=== PATIENT | female | born 1950 | race Caucasian/White ===

== ENCOUNTER 2020-01-11 11:13 | Emergency (ER) | payer MEDICARE, MEDICAID, SELFPAY ==
[2020-01-11] VITALS (8 sets, daily range): BP systolic 132–212; BP diastolic 81–101; PULSE 61–88; RESP 16–18; TEMP 36.9; O2SAT 98–100; BMI 32.3
--- NOTE | 2020-01-11 11:22 | DI.RAD.S_ITS ---
PROCEDURE: XR HIP W PEL IF DONE RT 2V INDICATIONS: Fall 2 weeks ago, persistent worsening pain. TECHNIQUE: AP pelvis with lateral view(s) of the right hip(s). COMPARISON: None. FINDINGS: Bones: No fractures or dislocations. Pelvic ring appears intact. No suspicious bony lesions. Chronic right os acetabulum. Mild bilateral hip degeneration. Lower lumbar spondylosis and sclerosis and spurring of the SI joints bilaterally. Soft tissues: The visualized bowel gas pattern is normal. No suspicious soft tissue calcifications. IMPRESSION: Mild bilateral hip joint degeneration. Lower lumbar spondylosis No fracture. Dictated by: Dakotah Smith M.D. on 01/11/2020 at 11:42 Approved by: Dakotah Smith M.D. on 01/11/2020 at 11:44
--- NOTE | 2020-01-11 13:37 | PC.NURSE ---
Pt c/o bilateral lower extremity pain/ burning and low back pain. 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 Now unable to walk r/t pain. Strength equall all 4 extremities, movement limited only by pain. Sensory intact. Denies bowel / bladder concerns. Very tearful and anxious, verbally reassured.
[2020-01-11 13:48] LABS: Add Manual Diff / Slide Review NO; Basophils Absolute Auto 100 /uL (0-100); Basophils Percent Auto 1.5 % (0-2); Eosinophils Absolute Auto 100 /uL (0-450); Eosinophils Percent Auto 0.7 % (2-4); Hematocrit 38.4 % (36-46); Hemoglobin 13.2 g/dL (12.0-16.0); Lymphocytes Absolute Auto 2000 /uL (1100-4500); Lymphocytes Percent Auto 25.1 % (25-40); Mean Corpuscular HGB Conc 34.2 % (30-36); Mean Corpuscular Hemoglobin 32.6 PG (26-34); Mean Corpuscular Volume 95.1 fL (80-100); Monocytes Absolute Auto 500 /uL (0-900); Monocytes Percent Auto 6.2 % (3-14); Neutrophils Absolute Auto 5400 /uL (1500-7000); Neutrophils Percent Auto 66.5 % (50-75); Platelet Count 286 X10^3/uL (150-400); Red Blood Cell Count 4.04 X10^6/uL (4.0-5.2); Red Cell Distribution Width 13.7 % (11.6-14.8); White Blood Cell Count 8.1 X10^3/uL (4.5-11.0)
[2020-01-11 14:00] LABS: Alanine Aminotransferase 14 IU/L (<35); Albumin 4.7 g/dL (3.5-5.0); Albumin Globulin Ratio 1.4 (1.0-2.8); Alkaline Phosphatase 69 U/L (38-126); Aspartate Aminotransferase 25 IU/L (14-36); BUN Creatinine Ratio 15.7 (6-22); Bilirubin Total 0.9 mg/dL (0.2-1.3); Blood Urea Nitrogen 11 mg/dL (7-17); C-Reactive Protein Quant 0.5 mg/dL (<1.0); Carbon Dioxide 23 mmol/L (22-32); Chloride 106 mmol/L (98-107); Creatine Kinase 53 U/L (30-135); Estimated Glomerular Filt Rate > 60.0 mL/min (>60); Globulin 3.3 g/dL (1.7-4.1); Glucose 102 mg/dL (80-110); HEMOLYSIS 42 (0-50); Sodium 139 mmol/L (137-145)
[2020-01-11] MEDS: ONDANSETRON 4 MG/2 ML INJ IV (14:07)
[2020-01-11] MEDS: KETOROLAC 60 MG/2 ML VIAL 30 MG IV (14:08)
[2020-01-11 14:14] LABS: Erythrocyte Sedimentation Rate 13 MM/HR (0-20)
[2020-01-11] MEDS: MORPHINE 4 MG/ML INJ IV (15:00)
--- NOTE | 2020-01-11 15:24 | DI.MRI.S_ITS ---
PROCEDURE: MR LUMBAR SPINE WO CON INDICATIONS: severe low back pain with sciatica unable to walk TECHNIQUE: Noncontrast sagittal T1 spin echo and T2 fast echo, sagittal STIR, axial T1 and T2 fast spin echo through the lumbar spine. In cases with scoliosis, additional coronal T2 fast spin echo may be performed. COMPARISON: [facility], CR, XR HIP W PEL IF DONE RT 2V, 01/11/2020, 11:20. FINDINGS: Image quality: Excellent. Alignment and Curvature: S-shaped scoliotic curvature is seen. There is minimal retrolisthesis at the L3-L4 level and the L4-L5 level and there is mild retrolisthesis at the L5-S1 level. There is overall straightening of the normal lumbar lordosis. Bone Marrow: Marrow is of normal overall signal. No acute vertebral body compression fractures. Spinal Cord: Conus medullaris terminates at the L1 level. Visualized cord demonstrates normal signal and size. Paraspinous Soft Tissues: No paravertebral masses. T12-L1: Normal appearance. L1-L2: Mild to moderate loss of disc height and disc signal can be seen. No significant neural foraminal or central canal narrowing can be seen. L2-L3: Moderate loss of disc height is seen. Loss of disc signal is seen. Moderate disc bulge is seen, which is eccentric to the left. Mild to moderate facet hypertrophy is seen. Reactive marrow endplate changes are seen, which are hyperintense on T1-weighted and T2-weighted imaging and most consistent with fatty metaplasia (Modic type II changes). There is mild to moderate right-sided and moderate left-sided neural foraminal narrowing seen. Mild central canal narrowing is seen. L3-L4: The disc height is well-preserved. Loss of disc signal is seen at this level. Moderate disc bulge is seen, which is eccentric to the left. Mild to moderate facet hypertrophy is seen. There is at least moderate bilateral neural foraminal narrowing seen, left worse than right. Moderate central canal narrowing is seen. L4-L5: Moderate loss of disc height is seen. Loss of disc signal is seen. Moderate to prominent disc bulge is seen. There is at least moderate facet hypertrophy seen. There is moderate left-sided neural foraminal narrowing seen. Moderate to severe right-sided neural foraminal narrowing is seen, with associated upon exiting right L4 nerve root. Moderate to severe central canal narrowing is seen. L5-S1: At least moderate loss of disc height and disc signal can be seen. Moderate to prominent disc bulge is seen at this level. At least moderate facet hypertrophy is seen. There is moderate to severe bilateral neural foraminal narrowing seen, right worse than left. Minimal to mild central canal narrowing is seen. 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 IMPRESSION: Multiple levels of lumbar spine degenerative change are seen, which are most prominent at the L4-L5 level and L5-S1. Dictated by: Eitan Mo M.D. on 01/11/2020 at 16:17 Approved by: Eitan Mo M.D. on 01/11/2020 at 16:22
--- NOTE | 2020-01-11 17:01 | ED.LOWEXIN ---
HPI - Extremity Injury (Lower) General Chief Complaint: Extremity Injury, Lower Stated Complaint: right leg is tingling,shortness of breath Time Seen by Provider: 01/11/20 12:59 Source: patient Mode of arrival: Ambulatory History of Present Illness HPI Narrative: CC: I can't walk HPI: The patient is a 69-year-old female who states that she slipped on wet pavement and landed on her buttocks 2 weeks ago. She complains that she has had significant low back pain and discomfort. She was not evaluated at the time at the time because it was not tender. She has had intermittent pain radiating from her right hip down her leg all the way to her toes. She has been having difficulty in walking and cannot walk. She states that the pain and discomfort is 10/10 in intensity. She has not been incontinent of urine or stool has not had urinary retention and has not lost sensation over her perineum or perirectally. She admits to a history of hypertension but denies diabetes mellitus and myocardial infarction. She has had no kidney failure. She does not smoke cigarettes but smokes marijuana. She has had intermittent sweats without fever or chills. She has had periodic headaches and a cough productive of clear sputum without hemoptysis. She has been short of breath but has had no palpitations or dizziness otherwise. She denies any nausea vomiting diarrhea abdominal pain. She has had some urinary frequency. Related Data Home Medications Medication Instructions Recorded Confirmed escitalopram oxalate 20 mg PO DAILY 01/11/20 01/11/20 levothyroxine 100 mcg PO DAILY 01/11/20 Previous Rx's Medication Instructions Recorded cyclobenzaprine 10 mg PO TID PRN #15 tab 01/11/20 naproxen 500 mg PO Q12H PRN #20 tab 01/11/20 prednisone 60 mg PO DAILY #15 tab 01/11/20 tramadol 50 mg PO Q6H PRN #20 tab 01/11/20 Allergies Allergy/AdvReac Type Severity Reaction Status Date / Time Penicillins [PENICILLINS] Allergy Unknown Verified 01/11/20 14:07 Review of Systems Review of Systems Narrative: Review of systems were all negative except for those mentioned in the history of present illness. Exam Narrative Exam Narrative: PHYSICAL EXAM: CONSTITUTIONAL: Awake, Alert, Oriented, Coherent, Cooperative in NAD. Sitting upright in bed. HEAD: AT/NC EENT: PERRL, FROM of eyes, no discharge, no nystagmus Oral mucosa is moist and pink, posterior pharynx is without erythema or exudate. NECK: Supple, no obvious JVD, Trachea is midline without stridor, no palpable LN or masses. SPINE: No gross deformity, no tenderness to palpation over the cervical and thoracic spine. However the patient has diffuse tenderness to palpation over the lumbar spine and right sciatic notch.. No CVA tenderness. THORAX: No deformity, retractions, chest wall tenderness, subcutaneous air or crepitice. LUNGS: Clear with symmetrical breath sounds without respiratory distress HEART: Normal heart tones, regular rhythm and rate without murmur. ABDOMEN: Soft, non-tender, normal bowel sounds without guarding, rebound, rigidity or palpable mass EXTREMITIES: No edema, cyanosis, deformity or tenderness. SKIN: No rash, bruising, petechiae or purpura. NEURO: Awake, alert, oriented, conversive, cranial nerves II-XII are symmetrical and normal, moves all 4 extremities and is ambulatory the patient has a positive straight leg raise on the right side. She had difficulty for initially flexing both hips and knees. Sensation was intact bilaterally. Initial Vital Signs Initial Vital Signs: Vital Signs Temperature 98.4 F 01/11/20 11:20 Pulse Rate 83 01/11/20 11:20 Respiratory Rate 18 01/11/20 11:20 Blood Pressure 212/99 H 01/11/20 11:20 Pulse Oximetry 100 01/11/20 11:20 Course Course Course Narrative: 1736 the patient initially states that she was unable to walking get up and around. An MRI was ordered. The MRI shows multiple levels of lumbar spine degenerative changes are seen which are most prominent at the L4-L5 and L5-S1 levels. At L4-5 there is moderate loss of disc height. Loss of disc signal is seen. Moderate to prominent disc bulge is seen. There is at least moderate facet hypertrophy. There is moderate left-sided neural foraminal narrowing seen. Moderate to severe right-sided neural foraminal narrowing is seen with associated upon exiting right L4 nerve root moderate to severe central canal narrowing is seen. L5-S1 at least moderate loss of disc height and disc signal can be seen moderate to prominent disc bulges seen at this level. At least moderate facet hypertrophy is seen. There is moderate to severe bilateral neuroforaminal narrowing seen in right worse than the left minimal to mild central canal narrowing is seen. The patient will be discharged home on a combination of Naprosyn cyclobenzaprine and tramadol for pain and discomfort. The patient was advised to follow-up with her primary care physician and be referred to a low back specialist. Orders Ordered: ED Orders 01/11/20 11:22 XR hip w pel if done RT 2V Stat 01/11/20 11:23 EKG-12 Lead Stat 01/11/20 13:35 C-Reactive Protein Quant Stat Complete Blood Count AUTO DIFF Stat Comprehensive Metabolic Panel Stat Creatine Kinase Stat Erythrocyte Sedimentation Rate Stat 01/11/20 15:24 MR lumbar spine wo con Stat 01/11/20 17:02 Consult to Physical Therapy Evaluate & Treat Discontinued Medications Ketorolac Tromethamine (Toradol) 30 mg IV NOW ONE Stop: 01/11/20 13:28 Last Admin: 01/11/20 14:08 Dose: 30 mg Documented by: NA Morphine Sulfate (Morphine) 4 mg IV NOW ONE Stop: 01/11/20 13:29 Last Admin: 01/11/20 15:00 Dose: 4 mg Documented by: NA Ondansetron HCl (Zofran) 4 mg IV NOW ONE Stop: 01/11/20 13:28 Last Admin: 01/11/20 14:07 Dose: 4 mg Documented by: NA Vital Signs Vital signs: Vital Signs - 8 hr 01/11/20 13:12 01/11/20 13:30 01/11/20 13:36 Pulse Rate 64 65 Pulse Rate [Bilateral Dorsalis Pedis] 88 Respiratory Rate 18 18 Blood Pressure Blood Pressure [Left Arm] 177/84 H 191/99 H Pulse Oximetry 100 98 01/11/20 14:00 01/11/20 14:30 01/11/20 15:00 Pulse Rate 65 71 61 Pulse Rate [Bilateral Dorsalis Pedis] Respiratory Rate 18 16 18 Blood Pressure Blood Pressure [Left Arm] 163/101 H 132/96 H 171/81 H Pulse Oximetry 98 98 98 01/11/20 18:00 Pulse Rate 68 Pulse Rate [Bilateral Dorsalis Pedis] Respiratory Rate 18 Blood Pressure 150/84 H Blood Pressure [Left Arm] Pulse Oximetry 99 MDM - Extremity Injury (Lower) Lab Data Result diagrams: 01/11/20 13:35 01/11/20 13:35 Labs: Lab Results 01/11/20 01/11/20 Range/Units 13:35 13:35 WBC 8.1 (4.5-11.0) X10^3/uL RBC 4.04 (4.0-5.2) X10^6/uL Hgb 13.2 (12.0-16.0) g/dL Hct 38.4 (36-46) % MCV 95.1 (80-100) fL MCH 32.6 (26-34) PG MCHC 34.2 (30-36) % RDW 13.7 (11.6-14.8) % Plt Count 286 (150-400) X10^3/uL Neut % (Auto) 66.5 (50-75) % Lymph % (Auto) 25.1 (25-40) % Schleicher % (Auto) 6.2 (3-14) % Eos % (Auto) 0.7 L (2-4) % Baso % (Auto) 1.5 (0-2) % Neut # (Auto) 5400 (7837-7995) /uL Lymph # (Auto) 2000 (6152-9671) /uL Schleicher # (Auto) 500 (0-900) /uL Eos # (Auto) 100 (0-450) /uL Baso # (Auto) 100 (0-100) /uL ESR 13 (0-20) MM/HR Sodium 139 (137-145) mmol/L Potassium 4.0 (3.4-5.1) mmol/L Chloride 106 (98-107) mmol/L Carbon Dioxide 23 (22-32) mmol/L BUN 11 (7-17) mg/dL Creatinine 0.70 (0.52-1.04) mg/dL Estimated GFR > 60.0 (>60) mL/min BUN/Creatinine Ratio 15.7 (6-22) Glucose 102 (80-110) mg/dL Calcium 10.0 (8.4-10.2) mg/dL Total Bilirubin 0.9 (0.2-1.3) mg/dL AST 25 (14-36) IU/L ALT 14 (<35) IU/L Alkaline Phosphatase 69 (38-126) U/L Total Creatine Kinase 53 (30-135) U/L C-Reactive Protein 0.5 (<1.0) mg/dL Total Protein 8.0 (6.3-8.2) g/dL Albumin 4.7 (3.5-5.0) g/dL Globulin 3.3 (1.7-4.1) g/dL Albumin/Globulin Ratio 1.4 (1.0-2.8) Discharge Plan Departure Patient Disposition: Home Clinical Impression: Low back pain radiating to right lower extremity Sciatica Qualifiers: Laterality: right Qualified Code(s): M54.31 - Sciatica, right side Discharge Date/Time: 01/11/20 18:00 Instructions: DI for Low Back Pain, DI for Sciatica Activity Restrictions/Additional Instructions: 1. Follow-up with your primary care physician to be referred to physical therapy for proper use and movement of your back. Also follow-up for referral to a neurosurgeon or orthopedic surgeon at deals with persistent chronic back pain and sciatica. 2. Take the prednisone 60 mg orally per day for the next 5 days. 3. Take Naprosyn 500 mg twice a day for pain and discomfort. 4. Take cyclobenzaprine 10 mg 3 times a day as needed for muscle spasms and cramps in your back. 5. Take tramadol 50 mg every 6 hours as needed as a rescue medicine for pain and discomfort unrelieved by the other medications. 6. If you develop troubles walking loss of sensation fever chills worsening pain or discomfort you need to return to the emergency department otherwise follow-up with your primary care physician. Prescriptions: New prednisone 20 mg tablet 60 mg PO DAILY Qty: 15 RF: 0 naproxen 500 mg tablet,delayed release (DR/EC) 500 mg PO Q12H PRN (Reason: pain) Qty: 20 RF: 0 cyclobenzaprine 10 mg tablet 10 mg PO TID PRN (Reason: muscle spasm) Qty: 15 RF: 0 tramadol 50 mg tablet 50 mg PO Q6H PRN (Reason: pain) Qty: 20 RF: 0 No Action levothyroxine 100 mcg tablet 100 mcg PO DAILY RF: 0 escitalopram oxalate 20 mg tablet 20 mg PO DAILY RF: 0 Referrals: Jeanette Mark MD [Primary Care Provider] -
== END 2020-01-11 18:00 | disposition home or self-care (01) ==
PROVIDERS: Emergency Provider Emergency Medicine; Family Provider Physician Assistant; PCP Family Medicine
DX: M54.5 Low back pain (principal); M54.31 Sciatica, right side; R06.02 Shortness of breath; R07.9 Chest pain, unspecified; M25.551 Pain in right hip
CPT/HCPCS: 36415; 72148; 73502; 80053; 82550; 85025; 85651; 86140; 93005; 96374; 96375; 99284; 99285; J1885; J2270; J2405

== ENCOUNTER 2021-01-23 19:10 | Emergency (ER) | payer MEDICARE, MEDICAID, SELFPAY ==
[2021-01-23] VITALS (11 sets, daily range): BP systolic 132–180; BP diastolic 68–96; PULSE 72–93; RESP 16–27; TEMP 36.7; O2SAT 94–99; BMI 30.7
--- NOTE | 2021-01-23 19:56 | DI.RAD.S_ITS ---
PROCEDURE: XR CHEST 1V INDICATIONS: overdose TECHNIQUE: One view of the chest was acquired. COMPARISON: None. FINDINGS: Surgical changes and devices: None. Lungs and pleura: Lungs are clear. No pleural effusions or pneumothorax. Mediastinum: Mediastinal contours appear normal. Heart size is normal. Large hiatal hernia. Bones and chest wall: No suspicious bony lesions. Overlying soft tissues appear unremarkable. IMPRESSION: Large hiatal hernia. No evidence acute pulmonary process. Dictated by: Stefano Nicole M.D. on 01/23/2021 at 20:41 Approved by: Stefano Nicole M.D. on 01/23/2021 at 20:41
[2021-01-23 20:23] LABS: Add Manual Diff / Slide Review NO; Basophils Absolute Auto 100 /uL (0-100); Basophils Percent Auto 0.8 % (0-2); Eosinophils Absolute Auto 100 /uL (0-450); Eosinophils Percent Auto 0.5 % (2-4); Hematocrit 38.6 % (36-46); Hemoglobin 12.6 g/dL (12.0-16.0); Lymphocytes Absolute Auto 1300 /uL (1100-4500); Lymphocytes Percent Auto 9.4 % (25-40); Mean Corpuscular HGB Conc 32.6 % (30-36); Mean Corpuscular Hemoglobin 31.4 PG (26-34); Mean Corpuscular Volume 96.1 fL (80-100); Monocytes Absolute Auto 900 /uL (0-900); Monocytes Percent Auto 6.4 % (3-14); Neutrophils Absolute Auto 11100 /uL (1500-7000); Neutrophils Percent Auto 82.9 % (50-75); Platelet Count 279 X10^3/uL (150-400); Red Blood Cell Count 4.01 X10^6/uL (4.0-5.2); Red Cell Distribution Width 14.5 % (11.6-14.8); White Blood Cell Count 13.4 X10^3/uL (4.5-11.0)
[2021-01-23 20:31] LABS: INR 0.9 (0.9-1.3); Prothrombin Time 10.9 SECONDS (10.1-12.7)
[2021-01-23 20:33] LABS: PTT Partial Thromboplastin Tim 27 SECONDS (26.4-36.2)
[2021-01-23 20:35] LABS: Alanine Aminotransferase 14 IU/L (<35); Albumin 4.5 g/dL (3.5-5.0); Albumin Globulin Ratio 1.7 (1.0-2.8); Alkaline Phosphatase 59 U/L (38-126); Aspartate Aminotransferase 24 IU/L (14-36); BUN Creatinine Ratio 16.7 (6-22); Bilirubin Total 0.4 mg/dL (0.2-1.3); Bilirubin Unconjugated 0.3 mg/dL (0.0-1.1); Blood Urea Nitrogen 14 mg/dL (7-17); Calcium 8.9 mg/dL (8.4-10.2); Carbon Dioxide 26 mmol/L (22-32); Chloride 105 mmol/L (98-107); Creatine Kinase 49 U/L (30-135); Estimated Glomerular Filt Rate > 60.0 mL/min (>60); Globulin 2.7 g/dL (1.7-4.1); Glucose 108 mg/dL (80-110); Potassium 4.8 mmol/L (3.4-5.1); Sodium 135 mmol/L (137-145); Total Protein 7.2 g/dL (6.3-8.2)
[2021-01-23 20:36] LABS: Acetaminophen < 10 ug/mL (10-30); Ethanol (ETOH) < 10 mg/dL; HEMOLYSIS 42 (0-50); Lactate (Lactic Acid) 1.8 mmol/L (0.7-2.1); Salicylate < 1.0 mg/dL (<20)
[2021-01-23 20:46] LABS: Troponin I < 0.012 ng/mL (0.01-0.034)
--- NOTE | 2021-01-23 21:23 | PC.NURSE ---
pt NS 1 liter bag iv has completed.
--- NOTE | 2021-01-23 21:25 | PC.NURSE ---
pt states she doesn't normally mix her oxycodone and marijuana. pt states she is feeling better and no longer nauseated.
[2021-01-23] MEDS: SODIUM CHLORIDE 0.9% 1,000 ML 150 ML IV (21:38)
[2021-01-23 22:02] LABS: UR Morphine/Opiate cutoff 300 Negative (Negative); Ur Creatinine 20 (Normal); Ur Specific Gravity 1.025 (Normal); Urine Amphetamines Negative (Negative); Urine Barbiturates Negative (Negative); Urine Benzodiazepines Negative (Negative); Urine Cocaine Negative (Negative); Urine MDMA Negative (Negative); Urine Methadone Negative (Negative); Urine Methamphetamines Negative (Negative); Urine Oxycodone Positive (Negative); Urine Phencyclidine Negative (Negative); Urine Tetrahydrocannabinol Positive (Negative); Urine Tricyclic Antidepressant Negative (Negative); Urine pH 5 (Normal)
[2021-01-23 23:12] LABS: Troponin I < 0.012 ng/mL (0.01-0.034)
--- NOTE | 2021-01-23 23:22 | ED.OVERDOSE ---
HPI - Overdose General Chief Complaint: Unresponsive Stated Complaint: Unresponsive Time Seen by Provider: 01/23/21 21:51 Source: patient and EMS Mode of arrival: EMS Limitations: no limitations History of Present Illness HPI Narrative: This is a 70-year-old female comes to the emergency department with complaint of overdose. Patient states that she took an oxycodone tonight. She states she took 1 tablet. She obtained this from another individual. She had 3-4 beers and smoked some marijuana. Patient states she was just trying to get out of pain. She has chronic back pain which he takes Tylenol for. She states she follows with primary care they do not prescribe anything else. She denies using other accidents as Neurontin, gabapentin or nortriptyline for pain. Patient states she was not intending to overdose. She was with her who noted she was not breathing well. He contacted 911. EMS states that when they arrived she had pinpoint pupils, she had 1 mg of Narcan intranasal and then additional mg IV and had immediate awakening. She did have emesis immediately afterwards. At this time she is feeling much better. Patient states that she does not intend to take the oxycodone again. She denies any other symptoms currently. Related Data Home Medications Medication Instructions Recorded Confirmed escitalopram oxalate 20 mg PO DAILY 01/11/20 01/11/20 levothyroxine 100 mcg PO DAILY 01/11/20 Previous Rx's Medication Instructions Recorded cyclobenzaprine 10 mg PO TID PRN #15 tab 01/11/20 naproxen 500 mg PO Q12H PRN #20 tab 01/11/20 prednisone 60 mg PO DAILY #15 tab 01/11/20 tramadol 50 mg PO Q6H PRN #20 tab 01/11/20 Allergies Allergy/AdvReac Type Severity Reaction Status Date / Time Penicillins [PENICILLINS] Allergy Unknown Verified 01/11/20 14:07 Review of Systems Review of Systems ROS Unobtainable: All systems reviewed & are unremarkable except as noted in HPI and below Patient History Substance Use Type: marijuana Exam Narrative Exam Narrative: GEN: well nourished, well appearing female, alert and oriented x 3, patient appears to be in mild distress. HEENT: Atraumatic, pupils are equal round reactive to light, extraocular movements are intact, nares are clear. HEART: Regular rate and rhythm without murmur, clicks, rubs. LUNGS:Lungs clear to auscultation, no wheezes, rales, crackles, chest moves symmetrically ABD:bowel sounds normal, soft, non-tender, no guarding, rebound, rigidity, no masses noted, no hepatosplenomegaly :No CVA tenderness MSCL: Non-tender, no muscle atrophy, muscles strength 5/5 upper and lower extremities, full range of motion, normal gait NEURO:CN 2-12 intact, sensation normal SKIN: No rash, erythema or other changes noted. Initial Vital Signs Initial Vital Signs: Vital Signs Temperature 98.0 F 01/23/21 19:17 Pulse Rate 93 H 01/23/21 19:17 Respiratory Rate 16 01/23/21 19:17 Blood Pressure 180/96 H 01/23/21 19:17 Pulse Oximetry 99 01/23/21 19:17 Scores GCS Kelsie coma scale eye opening: Spontaneous [place] coma scale verbal response: Orientated [place] coma scale motor response: Obey commands Kelsie coma scale total score: 15 Course Orders Ordered: ED Orders 01/23/21 19:56 XR chest 1V Stat 01/23/21 20:15 Acetaminophen Stat Complete Blood Count AUTO DIFF Stat Comprehensive Metabolic Panel Stat Ethanol (ETOH) Stat Hepatic (Liver) Panel Stat Lactate (Lactic Acid) Stat Partial Thromboplastin Time Stat Prothrombin Time INR Stat Salicylate Stat Troponin & CK Cardiac Panel Stat 01/23/21 21:50 Urine Drug Screen, Rapid Stat 01/23/21 22:43 Troponin I Stat 01/23/21 22:48 EKG-12 Lead Routine Discontinued Medications Sodium Chloride (Normal Saline 0.9%) 1,000 mls @ 150 mls/hr IV CONT ELENA Last Infusion: 01/23/21 23:55 Dose: 0 mls/hr Documented by: Admin: 01/23/21 21:38 Dose: 150 mls/hr Documented by: EZRA Reevaluation(s) Reevaluation #1: patient ambulates without issue after several hours of monitoring. Daughter at bedside and comfortable returning home. Time: 23:39 Vital Signs Vital signs: Vital Signs - 8 hr 01/23/21 21:00 01/23/21 21:30 01/23/21 22:00 Pulse Rate 79 75 78 Respiratory Rate 17 21 20 Blood Pressure Pulse Oximetry 94 95 94 01/23/21 22:30 01/23/21 22:54 01/23/21 23:00 Pulse Rate 77 73 74 Respiratory Rate 19 22 27 H Blood Pressure 140/68 132/73 Pulse Oximetry 94 95 94 01/23/21 23:56 Pulse Rate 72 Respiratory Rate 18 Blood Pressure 167/74 H Pulse Oximetry 95 MDM - Overdose Lab Data Attestation: I reviewed the patient's lab results. Result diagrams: 01/23/21 20:15 01/23/21 20:15 Labs: Lab Results 01/23/21 01/23/21 01/23/21 Range/Units 20:15 20:15 20:15 WBC 13.4 H (4.5-11.0) X10^3/uL RBC 4.01 (4.0-5.2) X10^6/uL Hgb 12.6 (12.0-16.0) g/dL Hct 38.6 (36-46) % MCV 96.1 (80-100) fL MCH 31.4 (26-34) PG MCHC 32.6 (30-36) % RDW 14.5 (11.6-14.8) % Plt Count 279 (150-400) X10^3/uL Neut % (Auto) 82.9 H (50-75) % Lymph % (Auto) 9.4 L (25-40) % [place] % (Auto) 6.4 (3-14) % Eos % (Auto) 0.5 L (2-4) % Baso % (Auto) 0.8 (0-2) % Neut # (Auto) 46339 H (6281-4275) /uL Lymph # (Auto) 1300 (1916-6047) /uL [place] # (Auto) 900 (0-900) /uL Eos # (Auto) 100 (0-450) /uL Baso # (Auto) 100 (0-100) /uL PT 10.9 (10.1-12.7) SECONDS INR 0.9 (0.9-1.3) APTT 27 (26.4-36.2) SECONDS Sodium 135 L (137-145) mmol/L Potassium 4.8 (3.4-5.1) mmol/L Chloride 105 (98-107) mmol/L Carbon Dioxide 26 (22-32) mmol/L BUN 14 (7-17) mg/dL Creatinine 0.84 (0.52-1.04) mg/dL Estimated GFR > 60.0 (>60) mL/min BUN/Creatinine Ratio 16.7 (6-22) Glucose 108 (80-110) mg/dL Lactate (0.7-2.1) mmol/L Calcium 8.9 (8.4-10.2) mg/dL Total Bilirubin 0.4 (0.2-1.3) mg/dL Conjugated Bilirubin 0.0 (0.0-0.3) md/dL Unconjugated Bilirubin 0.3 (0.0-1.1) mg/dL AST 24 (14-36) IU/L ALT 14 (<35) IU/L Alkaline Phosphatase 59 (38-126) U/L Total Creatine Kinase 49 (30-135) U/L CK-MB (CK-2) TNP CK-MB (CK-2) Rel Index TNP Troponin I < 0.012 (0.01-0.034) ng/mL Total Protein 7.2 (6.3-8.2) g/dL Albumin 4.5 (3.5-5.0) g/dL Globulin 2.7 (1.7-4.1) g/dL Albumin/Globulin Ratio 1.7 (1.0-2.8) Salicylates < 1.0 (<20) mg/dL U Opiates 300ng/mL cut (Negative) Ur Oxycodone Screen (Negative) Urine Methadone Screen (Negative) Acetaminophen < 10 L (10-30) ug/mL Ur Barbiturates Screen (Negative) U Tricyclic Antidepress (Negative) Ur Phencyclidine Scrn (Negative) Ur Amphetamines Screen (Negative) U Methamphetamines Scrn (Negative) Ur MDMA Scrn (Ecstasy) (Negative) U Benzodiazepines Scrn (Negative) Urine Cocaine Screen (Negative) U Marijuana (THC) Screen (Negative) Ethyl Alcohol < 10 ( - 10) mg/dL 01/23/21 01/23/21 01/23/21 Range/Units 20:15 21:50 22:43 WBC (4.5-11.0) X10^3/uL RBC (4.0-5.2) X10^6/uL Hgb (12.0-16.0) g/dL Hct (36-46) % MCV (80-100) fL MCH (26-34) PG MCHC (30-36) % RDW (11.6-14.8) % Plt Count (150-400) X10^3/uL Neut % (Auto) (50-75) % Lymph % (Auto) (25-40) % [place] % (Auto) (3-14) % Eos % (Auto) (2-4) % Baso % (Auto) (0-2) % Neut # (Auto) (2428-5283) /uL Lymph # (Auto) (5760-0017) /uL [place] # (Auto) (0-900) /uL Eos # (Auto) (0-450) /uL Baso # (Auto) (0-100) /uL PT (10.1-12.7) SECONDS INR (0.9-1.3) APTT (26.4-36.2) SECONDS Sodium (137-145) mmol/L Potassium (3.4-5.1) mmol/L Chloride (98-107) mmol/L Carbon Dioxide (22-32) mmol/L BUN (7-17) mg/dL Creatinine (0.52-1.04) mg/dL Estimated GFR (>60) mL/min BUN/Creatinine Ratio (6-22) Glucose (80-110) mg/dL Lactate 1.8 (0.7-2.1) mmol/L Calcium (8.4-10.2) mg/dL Total Bilirubin (0.2-1.3) mg/dL Conjugated Bilirubin (0.0-0.3) md/dL Unconjugated Bilirubin (0.0-1.1) mg/dL AST (14-36) IU/L ALT (<35) IU/L Alkaline Phosphatase (38-126) U/L Total Creatine Kinase (30-135) U/L CK-MB (CK-2) CK-MB (CK-2) Rel Index Troponin I < 0.012 (0.01-0.034) ng/mL Total Protein (6.3-8.2) g/dL Albumin (3.5-5.0) g/dL Globulin (1.7-4.1) g/dL Albumin/Globulin Ratio (1.0-2.8) Salicylates (<20) mg/dL U Opiates 300ng/mL cut Negative (Negative) Ur Oxycodone Screen Positive H (Negative) Urine Methadone Screen Negative (Negative) Acetaminophen (10-30) ug/mL Ur Barbiturates Screen Negative (Negative) U Tricyclic Antidepress Negative (Negative) Ur Phencyclidine Scrn Negative (Negative) Ur Amphetamines Screen Negative (Negative) U Methamphetamines Scrn Negative (Negative) Ur MDMA Scrn (Ecstasy) Negative (Negative) U Benzodiazepines Scrn Negative (Negative) Urine Cocaine Screen Negative (Negative) U Marijuana (THC) Screen Positive H (Negative) Ethyl Alcohol ( - 10) mg/dL Urine Dip Bedside Urine Glucose Negative Bedside Urine Bilirubin - Negative Bedside Urine Ketone - Negative Urine Specific [place] 1.025 Bedside Urine Occult Blood - Negative Bedside Urine pH 6.0 Bedside Urine Protein - Negative Bedside Urine Urobilinogen - Negative Bedside Urine Nitrite - Negative Bedside Urine Leukocytes - Negative Esterase Imaging Data Chest x-ray: Radiologist's Impression: Maria G Jha 70 F [address] [id number] ReportSigned Patient: Maria G Jha LMR#: [id number]: 1950cct:[id number]/Sex: 70 / FDate of Service: 01/23/21Loc: EDAccession Number: [id number] Procedure: XR chest 1V Ordering Provider: Missy Kelley D.O. PROCEDURE: XR CHEST 1V INDICATIONS: overdose TECHNIQUE: One view of the chest was acquired. COMPARISON: None. FINDINGS: Surgical changes and devices: None. Lungs and pleura: Lungs are clear. No pleural effusions or pneumothorax. Mediastinum: Mediastinal contours appear normal. Heart size is normal. Large hiatal hernia. Bones and chest wall: No suspicious bony lesions. Overlying soft tissues appear unremarkable. IMPRESSION: Large hiatal hernia. No evidence acute pulmonary process. Dictated by: Stefano Nicole M.D. on 01/23/2021 at 20:41 Approved by: Stefano Nicole M.D. on 01/23/2021 at 20:41 ECG Data Attestation: I personally reviewed and interpreted this ECG as follows: Interpretation: Sinus rhythm rate of 70 TX interval 147 QRS of 92 and QTC of 408. No ST elevation depression appreciated. MDM Narrative Medical decision making narrative: This is a 70-year-old female comes to the emergency department with complaint of overdose. Patient had almost immediate response to Narcan. She did have emesis but does not appear to have any significant symptoms afterwards. Because of her age troponin was repeated. EKG shows no acute findings. Patient is feeling much better able to ambulate the department. She has been here several hours without any recurrence or lethargy. Discharge Plan Departure Patient Disposition: Home Clinical Impression: Overdose Instructions: DI for Drug Overdose in Adults Activity Restrictions/Additional Instructions: Follow up with your physician, you may wish to ask about a referral to pain management if you feel they are not adequately treating your pain. Continue your regular home medications as prescribed. Do not drink alcohol with narcotics or other substances that cause drowsiness. Your maximum dose of Tylenol is 1000mg every 8 hours as needed for pain. Return to the ER for fevers, altered mental status, recurrent symptoms, chest pain, shortness of breath, cough, lightheadedness or passing out, persistent vomiting or other new or concerning symptoms. Prescriptions: No Action levothyroxine 100 mcg tablet 100 mcg PO DAILY RF: 0 escitalopram oxalate 20 mg tablet 20 mg PO DAILY RF: 0 prednisone 20 mg tablet 60 mg PO DAILY Qty: 15 RF: 0 naproxen 500 mg tablet,delayed release (DR/EC) 500 mg PO Q12H PRN (Reason: pain) Qty: 20 RF: 0 cyclobenzaprine 10 mg tablet 10 mg PO TID PRN (Reason: muscle spasm) Qty: 15 RF: 0 tramadol 50 mg tablet 50 mg PO Q6H PRN (Reason: pain) Qty: 20 RF: 0 Referrals: Jeanette Mark MD [Primary Care Provider] -
--- NOTE | 2021-01-23 23:34 | PC.NURSE ---
pt ambulated to restroom with a steady gait
== END 2021-01-23 23:56 | disposition home or self-care (01) ==
PROVIDERS: Emergency Provider Emergency Medicine; Family Provider Physician Assistant; PCP Family Medicine
DX: T40.2X1A Poisoning by other opioids, accidental (unintentional), initial encounter (principal); F12.90 Cannabis use, unspecified, uncomplicated
CPT/HCPCS: 36415; 71045; 80053; 80076; 80305; 80320; 80329; 81003; 82550; 83605; 84484; 85025; 85610; 85730; 93005; 96360; 96361; 99283; 99284; G0480

== ENCOUNTER → 2025-04-29 09:52 | Outpatient (CLI) | payer MEDICARE, MEDICAID, SELFPAY ==
--- NOTE | 2025-04-29 09:55 | DI.RAD.S_ITS ---
PROCEDURE: XR KNEE RT 3V INDICATIONS: Pain in right knee TECHNIQUE: 3 views of the knee were acquired. COMPARISON: None. FINDINGS: On the lateral image there is discrepancy between the medial and lateral tibial plateau heights which raises the suspicion for possible tibial plateau fracture most likely medial based on the frontal image with irregularity in the medial greater than lateral tibial plateau. Moderate degenerative changes are noted with joint space narrowing and osteophytes in the medial lateral and patellofemoral compartments. Mild knee joint effusion. No radiographic evidence of dislocation or high attenuation soft tissue foreign body. IMPRESSION: Possible medial tibial plateau fracture. CT or MRI would be useful for further evaluation. Degenerative changes. Dictated by: Gustavo Proctor M.D. on 04/30/2025 at 9:27 Approved by: Gustavo Proctor M.D. on 04/30/2025 at 9:32
== END ==
PROVIDERS: Family Provider Physician Assistant; PCP Nurse Practitioner Family; Referring Provider Nurse Practitioner Family; Visit Provider Nurse Practitioner Family
DX: M25.561 Pain in right knee (principal); M25.461 Effusion, right knee; G89.29 Other chronic pain
CPT/HCPCS: 73562

== ENCOUNTER → 2025-06-15 09:56 | Outpatient (CLI) | payer MEDICARE, MEDICAID, SELFPAY ==
--- NOTE | 2025-06-15 10:01 | EKG_ITS ---
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
[2025-06-15 10:34] LABS: Add Manual Diff / Slide Review NO; Hematocrit 38.9 % (36-46); Hemoglobin 13.3 g/dL (12.0-16.0); Lymphocytes Absolute Auto 1800 /uL (1100-4500); Mean Corpuscular HGB Conc 34.1 % (30-36); Mean Corpuscular Hemoglobin 31.3 PG (26-34); Mean Corpuscular Volume 91.9 fL (80-100); Platelet Count 319 X10^3/uL (150-400)
[2025-06-15 10:42] LABS: Hemoglobin A1C% w Est Avg Glu 5.5 % (4.0-6.0)
[2025-06-15 10:52] LABS: Blood Urea Nitrogen 12 mg/dL (7-17); Calcium 9.3 mg/dL (8.4-10.2); Carbon Dioxide 23 mmol/L (22-32); Chloride 105 mmol/L (98-107); Estimated Glomerular Filt Rate > 60 mL/min (>60); Glucose 92 mg/dL (70-99); HEMOLYSIS < 15 (0-50); Potassium 4.5 mmol/L (3.4-5.1); Sodium 137 mmol/L (137-145)
[2025-06-15 12:11] LABS: Appearance Urine UA CLEAR; Bilirubin Urine UA NEGATIVE (NEGATIVE); Color Urine UA YELLOW; Glucose Urine UA NEGATIVE (Negative); Ketones Urine UA NEGATIVE (NEGATIVE); Leukocyte Esterase Urine UA 1+ (NEGATIVE); Nitrite Urine UA NEGATIVE (Negative); Occult Blood Urine UA TRACE-INTACT (Negative); Protein Urine UA NEGATIVE (Negative); Specific Gravity Urine UA 1.025 (1.000-1.035); Urobilinogen Urine UA 0.2 E.U./dL (0.2)
[2025-06-15 12:16] LABS: pH Urine UA 5.5 (4.5-8.0)
== END ==
LOC: LAB 09:58 → RESP 09:58
PROVIDERS: Family Provider Physician Assistant; PCP Nurse Practitioner Family; Referring Provider Orthopaedic Surgery; Visit Provider Orthopaedic Surgery
DX: Z01.812 Encounter for preprocedural laboratory examination (principal); N39.0 Urinary tract infection, site not specified; R73.9 Hyperglycemia, unspecified; Z01.818 Encounter for other preprocedural examination
CPT/HCPCS: 36415; 80048; 81001; 83036; 85025; 93005